=== PATIENT | female | born 1990 | race Caucasian/White ===

== ENCOUNTER → 2024-03-11 | Outpatient (CLI) | payer OTHER, SELFPAY ==
[2024-03-10 15:58] LABS: HCG Qualitative,Urine Negative
--- NOTE | 2024-03-11 14:00 | XR_ITS ---
Examination: CT soft tissue neck, without intravenous contrast. 2-D coronal reconstructions. 2-D sagittal reconstructions. Date and time of exam :March 11, 2024 1513 hours INDICATIONS: Palpable left left neck 2 years. Cervical lymph nodes on ultrasound soft tissue neck January 10, 2024 CTDI: vol (mGy):11 DLP: (mGycm):352 Technique: 1.25 mm axial sections of the neck of the obtained. Coronal and sagittal reconstructions have been obtained. . Low dose protocols were performed. One or more of the following dose reduction techniques were used; automated exposure control, adjustment of the mA and/or KV according to patient size, use of iterative reconstruction technique. Findings: Symmetrical nasopharynx oropharynx Subcentimeter carotid triangle lymph nodes Symmetrical thyroid lobes The larynx appears normal Normal epiglottis IMPRESSION: No pathologic lymphadenopathy Suggest 3-6 month follow-up ultrasound soft tissue neck as clinically warranted
== END | disposition home or self-care (01) ==
PROVIDERS: Referring Provider Registered Nurse; Visit Provider Registered Nurse
DX: R22.1 Localized swelling, mass and lump, neck (principal); Z32.00 Encounter for pregnancy test, result unknown
CPT/HCPCS: 70490; 81025

== ENCOUNTER → 2024-04-23 | Outpatient (CLI) | payer OTHER, SELFPAY ==
[2024-04-30 06:59] LABS: Parvovirus B19 Ab IgG 4.2; Parvovirus B19 Ab IgM 0.2
== END | disposition home or self-care (01) ==
LOC: COPL 12:36
PROVIDERS: PCP Family Medicine; Referring Provider Nurse Practitioner Family; Visit Provider Nurse Practitioner Family
DX: B34.3 Parvovirus infection, unspecified (principal)
CPT/HCPCS: 36415; 86747

== ENCOUNTER → 2024-05-28 | Outpatient (CLI) | payer OTHER, SELFPAY ==
[2024-05-28 14:38] LABS: Beta HCG,Quantitative 85 mIU/mL (<5.0)
== END | disposition home or self-care (01) ==
PROVIDERS: PCP Family Medicine; Referring Provider Obstetrics & Gynecology; Visit Provider Obstetrics & Gynecology
DX: O02.1 Missed abortion (principal)
CPT/HCPCS: 36415; 84702

== ENCOUNTER → 2024-06-16 | Outpatient (CLI) | payer OTHER, SELFPAY ==
[2024-06-16 14:05] LABS: Beta HCG,Quantitative 3 mIU/mL (<5.0)
== END | disposition home or self-care (01) ==
LOC: COPL 12:52
PROVIDERS: PCP Family Medicine; Referring Provider Specialist; Visit Provider Specialist
DX: O03.9 Complete or unspecified spontaneous abortion without complication (principal)
CPT/HCPCS: 36415; 84702

== ENCOUNTER 2024-08-17 22:04 | Emergency (ER) | payer OTHER, SELFPAY ==
[2024-08-17 22:06] VITALS: BMI 20.7
--- NOTE | 2024-08-17 22:49 | EDNOTE_ITS ---
ED Abdominal Pain RME/HPI General Chief Complaint: Abdominal Pain Stated complaint: CONCERNED OF ECTOPIC PREG Time seen by provider: 08/17/24 22:51 Arrival date/time: 08/17/24 22:04 RME / HPI RME / HPI narrative: This section includes all my notes and documentations, including HPI, PE, and ED course. Larry White MD HPI: 34yo female who is 6 weeks 2 days gestation presents to the ED for a chief complaint of right lower abdominal pain. Patient states she started having right lower abdominal pain ~6 hours ago, reporting it's gotten progressively worse, so she came in for evaluation. Patient denies any nausea, vomiting, fever, chills, dysuria or any other associated symptoms. LMP was 07/05/24. No vaginal bleeding. No other complaints reported. ROS: All negative except as documented in HPI. Physical Exam: General: Alert and oriented. No acute distress when remaining still. Eyes: Conjunctivae and lids clear. ENT: No nasal congestion. Neck: Supple. Heart: RRR. Lungs: No respiratory distress. Good air movement. No rhonchi, wheezing, rales. Abdomen: Soft and nontender. Normal bowel sounds. No distension. No rebound or guarding. Back: No CVA tenderness. Skin: Warm and dry. Neuro: Alert and oriented X 3. I reviewed all diagnostic test results. My review of the US transvaginal report is IUP. Blood tests and urine tests are unremarkable. Beta-hCG 24,875. At this point, diagnoses include threatened miscarriage. Patient remained stable. Recommended expectant management. Based on my best medical judgment, made decision no further evaluation or treatment indicated at this time. Patient understands and agrees to the discharge instructions customized and printed, see below. Discharge Instructions from Dr. White: 1. After evaluation, your baby is alive and doing well in the uterus. 2. Your gestational age is about 6 weeks. 3. Only time will determine whether you will have a successful or you will have a miscarriage. If your symptoms stop, you can have a successful . If your symptoms worsen with vaginal bleeding, you may have a miscarriage. If you have a miscarriage, unfortunately we won?t be able to save the baby because it?s too early. Under 20 weeks, unfortunately we can?t help. 4. See a private doctor on 08/20/24 for recheck. No sexual activity until cleared by a doctor taking care of you. Ask to recheck your beta-hCG level which doubles every 2 to 3 days in normal . The level was 24,875 here. 5. Seek immediate medical care for severe bleeding (soaking more than 3 pads per hour), intolerable pain, or with any concerns. Larry White MD Related Data Allergies Allergy/AdvReac Type Severity Reaction Status Date / Time cephalexin (From Keflex) Allergy Verified 08/17/24 22:16 Review of Systems Review of Systems Systems Reviewed: All systems reviewed, normal except as documented Past Medical History Social History SMOKING STATUS: Former smoker ED Exam Narrative Physical exam: As noted in HPI. Course Quality Measures none Orders Category Date Time Status US OB transvaginal Stat Exams 08/18/24 00:27 Taken Beta HCG,Quantitative Stat Lab 08/17/24 23:00 Completed CBC Stat Lab 08/17/24 23:00 Completed CMP [Comprehensive Metabolic Panel] Stat Lab 08/17/24 23:00 Completed Magnesium Stat Lab 08/17/24 23:00 Completed Rh Testing Only Stat Lab 08/17/24 23:00 Completed UA, C/S IF [Urinalysis, C/S if Indicated] Stat Lab 08/17/24 23:11 Completed Vital Signs Vital signs: Vital Signs Temperature 98.3 F 08/17/24 23:04 Pulse Rate 96 08/17/24 23:04 Respiratory Rate 18 08/17/24 23:04 Blood Pressure 116/81 08/17/24 23:04 Pulse Oximetry (%) 96 08/17/24 23:04 Oxygen Delivery Method Room Air 08/17/24 23:04 Abdominal Pain MDM MDM Narrative MDM Narrative:: 34yo female who is 6 weeks 2 days gestation presents to the ED for a chief complaint of right lower abdominal pain. Patient states she started having right lower abdominal pain ~6 hours ago, reporting it's gotten progressively worse, so she came in for evaluation. Patient denies any nausea, vomiting, fever, chills, dysuria or any other associated symptoms. LMP was 07/05/24. No other complaints reported. Patient data External records reviewed:: [facility] previous records (Per chart review, patient has no previous ED visits or admissions to this facility.) Clinical information provided by:: patient Social determinants that could affect healthcare access:: none Patient has the following chronic illnesses:: none How is presenting disease/condition affected by chronic disease/condition?: no chronic disease Evaluation data The following diagnostics were reviewed and interpreted by me:: lab results and radiology exam(s) Lab and/or radiology exams considered but not ordered:: none Interpretation Summary: I reviewed all diagnostic test results. My review of the US transvaginal report is IUP. Blood tests and urine tests are unremarkable. Beta-hCG 24,875. Medications / Prescriptions Medications or Prescriptions considered but not ordered:: none Medication administrations:: none Consultations Consultation(s) initiated? (list below): No Diagnosis Differential diagnosis abdominal pain: constipation and other (Threatened AB, c omplete AB, incomplete AB, IUP, ectopic) Most likely diagnosis given after review of the tests above:: Threatened miscarriage Admission Indicated Admission indicated?: not indicated Explain why admission is indicated or not indicated:: With no severe illness, there was no indication for admission. Admission Request Was there a request for admission?: No Disposition Plan Disposition Plan: Discharge Discharge Attestation Discharge Attestation: The patient and all family members were given an opportunity to ask questions and understood the discharge instructions. Discharge instructions specifically effects, indications for sooner follow up or return to the emergency department, and the expected course of current diagnosis. Patient condition: Stable Discharge Plan Plan Patient Disposition: HOME (Self Care) Prescriptions/Referrals Referrals: Hardik Colón MD [Primary Care Provider] - In 1 week Problem List Clinical Impression: Threatened miscarriage Patient/Caregiver Discharge Instructions Discharge Activity: activity as tolerated Education Materials: ED Possible Miscarriage ... Additional Instructions: Discharge Instructions from Dr. Whiet: 1.? ? ? After evaluation, your baby is alive and doing well in the uterus. 2.? ? ? Your gestational age is about 6 weeks. 3.? ? ? Only time will determine whether you will have a successful or you will have a miscarriage.? If your symptoms stop, you can have a successful .? If your symptoms worsen with vaginal bleeding, you may have a miscarriage.? If you have a miscarriage, unfortunately we won?t be able to save the baby because it?s too early.? Under 20 weeks, unfortunately we can?t help.?? 4.? ? ? See a private doctor on 08/20/24 for recheck.? No sexual activity until cleared by a doctor taking care of you. Ask to recheck your beta-hCG level which doubles every 2 to 3 days in normal . The level was 24,875 here. 5.? ? ? Seek immediate medical care for severe bleeding (soaking more than 3 pads per hour), intolerable pain, or with any concerns.? Print Language: Hebrew Stand Alone Forms: Sarah Award Info., Patient Portal Info Letter
[2024-08-17 23:04] VITALS: BP 116/81; PULSE 96; RESP 18; TEMP 36.8; O2SAT 96
[2024-08-17 23:19] LABS: Collection Type, Urine Clean Catch; RBC,Urine 0 /hpf (0-3); WBC,Urine 0 /hpf (0-5)
[2024-08-17 23:28] LABS: Bilirubin,Urine Negative (Negative); Blood,Urine Negative (Negative); Calcium Oxalate Crystals,Urine 3+; Clarity,Urine Clear (Clear/Hazy); Color,Urine Yellow (Lt Yel-Yel); Culture Indicated,Urine Not Indicated; Glucose, Urine Negative (Negative); Ketones,Urine Negative (Negative); Leukocyte Esterase,Urine Negative (Negative); Nitrite,Urine Negative (Negative); Protein,Urine Trace (Neg - Trace); Specific Gravity,Urine 1.033 (1.001-1.035); Squamous Epithelial Cell,Urine 3 /hpf (0-5); Urobilinogen,Urine Negative mg/dL (0.0-1.0)
[2024-08-17 23:32] LABS: Basophils % (Auto) 1 % (0-2.5); Eosinophils # (Auto) 0.1 Thou/mm3 (0.0-0.5); Eosinophils % (Auto) 4 % (0-10); Hematocrit 37.6 % (36.0-46.0); Hemoglobin 13.1 g/dL (12.0-16.0); Immature Granulocytes % (Auto) 0 % (0-0); Immature Granulocytes Auto 0.01 Thou/mm3 (0.00-0.00); Lymphocytes # (Auto) 1.1 Thou/mm3 (1.0-4.8); Lymphocytes % (Auto) 33 % (10-50); Mean Corpuscular HGB Conc 34.8 g/dl (31.0-37.0); Mean Corpuscular Hemoglobin 30.6 pg (25.0-35.0); Mean Corpuscular Volume 88 fL (80-100); Monocytes # (Auto) 0.3 Thou/mm3 (0.0-0.8); Monocytes % (Auto) 9 % (0-12); Neutrophils # (Auto) 1.8 Thou/mm3 (1.8-7.7); Neutrophils % (Auto) 53 % (37-80); Nucleated Red Blood Cell % 0 /100 WBC (0); Platelet Count 183 Thou/mm3 (140-440); RDW Standard Deviation 41.4 fL (36.4-46.3); Red Blood Count 4.28 Miln/mm3 (4.00-5.20); White Blood Count 3.4 Thou/mm3 (3.6-11.0)
[2024-08-18 00:06] LABS: Alanine Aminotransferase 12 U/L (10-49); Albumin, Serum 4.9 gm/dL (3.5-5.0); Albumin/Globulin Ratio 1.9 (1.2-2.2); Alkaline Phosphatase 36 U/L (46-116); Anion Gap 8 (7-16); Aspartate Amino Transferase 17 U/L (0-34); BUN/Creatinine Ratio 14 Ratio (12-20); Bilirubin,Total 0.8 mg/dL (0.3-1.2); Blood Urea Nitrogen 10 mg/dL (9-23); Calcium 10.8 mg/dL (8.3-10.6); Calcium (Corrected) 10.8 mg/dL (8.5-10.1); Carbon Dioxide 26.7 mMol/L (20.0-31.0); Chloride 103 mMol/L (98-107); Creatinine (Component) 0.7 mg/dL (0.6-1.3); Estimated Creatinine Clearance 99.4 mL/min (>60); Globulin 2.6 gm/dL (2.3-3.5); Glucose 96 mg/dL (74-106); Magnesium 2.2 mg/dL (1.6-2.6); Osmolality,Calculated 274 (275-295); Potassium 3.8 mMol/L (3.4-5.1); Sodium 138 mMol/L (136-145); Total Protein 7.5 gm/dL (5.7-8.2); eGFR > 60 See Note
--- NOTE | 2024-08-18 00:27 | XR_ITS ---
Examination: OB Transvaginal ultrasound of the pelvis, complete Technique: Transvaginal sonographic images pelvis performed using garcia scale imaging Exam date and time: August 18, 2024 0033 hours INDICATIONS: Constant sharp pelvic pain beginning 2 days ago FINDINGS: Uterus 8.7 cm endometrial stripe not visualized pole 0.4 cm corresponds to 6 weeks 1 day gestational age Cardiac motion 111 bpm Right ovary 3.2 cm arterial flow. Left ovary 3.3 serum arterial flow 19 mm follicular cyst IMPRESSION: Viable intrauterine gestation 6 weeks 1 day.
[2024-08-18 00:37] LABS: Beta HCG,Quantitative 24875 mIU/mL (<5.0)
--- NOTE | 2024-08-18 01:55 | PRELIM_ITS ---
Obstetric ultrasound (transvaginal) with Doppler and wave Doppler spectral analysis. August 18, 2024 0033 hours Clinical history: Abdominal pain (GA 6 2/7 weeks). LMP 07/05/2024. Technique: Real-time ultrasound was performed using Duplex scanning including arterial inflow, venous outflow, color and spectral Doppler analysis of both ovaries. Comparison: None. Findings: There is an intrauterine gestation with a single live fetus of mean gestational age 6 weeks and 1 days (CRL= 0.44 cm). cardiac activity is present at heart rate of 111 beats per minute. The yolk sac measures 0.4 cm. The uterus retroflexed and measures 8.7 x 5.0 x 5.2 cm. The right ovary measures 3.2 x 1.7 x 1.6 cm and is unremarkable. The left ovary measures 3.3 x 2.6 x 2.6 cm, complex cystic lesion in the left ovary measures 1.8 x 1.9 x 1.8 cm, probably corpus luteum cyst. Normal blood flow in the bilateral ovaries with normal wave Doppler spectral analysis There is no free fluid in the pelvis. Impression: Intrauterine gestation with a single live fetus of mean gestational age 6 weeks and 1 day. No evidence of ovarian torsion. Report Electronically Signed By: Efrain Quiroga 08/18/2024 1:54:46 AM [EST]
== END 2024-08-18 01:24 | disposition home or self-care (01) ==
PROVIDERS: Emergency Provider Emergency Medicine; PCP Family Medicine
DX: O20.0 Threatened abortion (principal); Z3A.01 Less than 8 weeks gestation of pregnancy
CPT/HCPCS: 36415; 76817; 80053; 81001; 83735; 84702; 85025; 86901; 99284